=== PATIENT | male | born 1955 | race African-American/Black ===

== ENCOUNTER → 2016-11-28 | Outpatient (CLI) | payer OTHER ==
[~2016-11-28] VITALS: Ht 180.3 cm; Wt 88.0 kg
[~2016-11-28] MED LIST: REGADENOSON 0.4 MG/5 ML DISP.SYRIN. IV ONE
--- NOTE | 2016-11-28 21:28 | RAD ---
APPROVED REPORT Test Type: Pharmacological Stress Nurse/Tech: karen banks Test Indications: chest pain Cardiac History: WI, CAD, CHF,HTN, SEE EHR Medications: SEE EHR Medical History: SMOKER, SEE EHR Resting ECG: SR WITH BBB Resting Heart Rate: 89 bpm Resting Blood Pressure: 127/78mmHg Pretest Chest Pain: No chest pain Nurse/Tech Notes LUNG SOUNDS CLEAR, S1S2 WNL. Consent: The procedure was explained to the patient in lay terms. Informed consent was witnessed. Kem eout was entered into [employer]. History and Stress Test performed by VALERY Patterson Pharm. Details Pharmacologic stress testing was performed using 0.4mg per 5ml of regadenoson given intravenously ove r 7-10 seconds. Stress Symptoms SOA, HEADACHE. POST EXERCISE Reason for Termination: Infusion complete Max HR: 137 bpm Max Blood Pressure: 132/81mmHg Chest Pain: No. Arrhythmia: No. ST Change: No. Imaging Protocol IMAGE PROTOCOL: Rest Tc-99m/stress Tc-99m 1 day Rest: Stress: Viability: Radiopharm.Tc99m NckvpyusxOe96t Sestamibi Dose11.9mCi 39.2mCi Duration 15min. 10min. Img Date 11/28/2016 11/28/2016 Inj-Img [id number]. 60min. Rest Admin Site:IV - Right AntecubitalAdministrator:VALERY Patterson Stress Admin Site: IV - Right AntecubitalAdministrator: ALVIN Sands, ARRT (R)(N) STRESS DATA End Diast. Vol.136.0mlAv. Heart Rate98.0bpm End Syst. Vol.45.0mlCO Index BSA0.0L/min Myocardial Ggei517.0gEject. Uvdtaeqt23.0% Stress Rates Pk. Fill Rate3.07EDV/secLVtime Pk. Fill 62.55msec Pk. Empty Rate4.77ESV/secLVtime Pk. Clqeb472.63msec 11/05 Pk. Fill2.24EDV/sec Stress Scores Regional WT2.00Summed WT16.00 Regional WM0.00Summed WM0.00 LV Perf. Quant 17 Seg. SSS12.00 17 Seg. SRS14.00 17 Seg. SDS0.00 Stress Defect Extent (% LAD)2.50Rest Defect Extent (% LAD)4.40Rev. Defect Extent (% LAD)0.00 Stress Defect Extent (% LCX) 72.50Rest Defect Extent (% LCX)68.80Rev. Defect Extent (% LCX)13.80 Stress Defect Extent (% RCA)25.60Rest Defect Extent (% RCA)24.40Rev. Defect Extent (% RCA)0.00 Stress Defect Extent (% KRISTEN)25.70Rest Defect Extent (% KRISTEN)26.50Rev. Defect Extent (% KRISTEN)2.40 Conclusion 1. NJo electrocardiographic changessu ggestive of myocardial ischemia with pharmacological strss 2. Large perfusion defect both with stress and rest over the inferolateral wall indicative of a scar 3. No difinite evidence of myocardial ischemia 4. The ejection fraction is87% 5. Scan indicates low risk for future cardiac events
== END | disposition home or self-care (01) ==
LOC: NM 11:12
PROVIDERS: ATTEND Specialist
DX: I25.10 Atherosclerotic heart disease of native coronary artery without angina pectoris (principal); R07.9 Chest pain, unspecified; Z82.49 Family history of ischemic heart disease and other diseases of the circulatory system; I10 Essential (primary) hypertension; Z87.891 Personal history of nicotine dependence
CPT/HCPCS: 78452; 93017; 96374; 96376; A9500; J2785